=== PATIENT | female | born 1995 | race Caucasian/White ===

== ENCOUNTER 2016-12-05 07:56 | Emergency (ER) | payer OTHER ==
[~2016-12-05] VITALS: Ht 157.5 cm; Wt 46.9 kg
[~2016-12-05 07:56] MED LIST: AMOXICILLIN875 MG PO; FIORICET 50-301 EACH PO; FLEXERIL10 MG PO; GUMMI BEAR MUL1 EACH PO; MACROBID100 MG PO; MOTRIN600 MG PO; MOTRIN800 MG PO; NORCO 5/3251 TABLET PO; PERCOCET 5/31 TABLET PO
[2016-12-05 08:25] LABS: ADD MIUA? YES; BILIRUBIN NEGATIVE; BLOOD NEGATIVE; COLOR YELLOW ((YELLOW)); GLUCOSE (STRIP) NEGATIVE; KETONES NEGATIVE; LEUKOCYTES TRACE; NITRITE NEGATIVE; PROTEIN (STRIP) NEGATIVE; SPECIFIC GRAVITY 1.012 (1.000-1.030); UROBILINOGEN 0.2 MG/DL (0.2-1.0)
[2016-12-05 08:29] LABS: BACTERIA RARE /HPF; EPITHELIAL CELLS 1+ /HPF; MUCUS TRACE /LPF; RED BLOOD CELLS 0-5 /HPF (0-5); UCUL ADDED? NO; WHITE BLOOD CELLS 0-5 /HPF (0-5)
[2016-12-05 08:33] LABS: HEMATOCRIT 41.9 % (36.0-46.0); MCH 27.9 PG (29.0-34.0); MCHC 32.7 G/DL (30.0-36.0); MCV 85.3 FL (83-99); RBC DIS.WIDTH-CV 13.9 % (11.8-14.6); RBC DIS.WIDTH-SD 43.5 % (39-53); RED BLOOD COUNT 4.91 M/uL (3.80-5.20); WHITE BLOOD COUNT 9.6 K/uL (4.1-10.2)
[2016-12-05 08:42] LABS: CHLORIDE 107 mEq/L (99-109); POTASSIUM 4.1 mEq/L (3.7-5.4); SODIUM 138 mEq/L (136-147)
[2016-12-05 08:45] LABS: GLUCOSE 85 mg/dL (70-99)
[2016-12-05 08:46] LABS: ANION GAP 11 MEQ/L (2-14); TOTAL BILIRUBIN 0.7 mg/dL (0.0-1.0)
[2016-12-05 08:48] LABS: ALKALINE PHOSPHATASE 42 IU/L (3-129); GFR ESTIMATE (CALCULATED) > 59 mL/min/
[2016-12-05 08:49] LABS: UREA NITROGEN (BUN) 14 mg/dL (9-23)
[2016-12-05 08:58] LABS: QUANTITATIVE HCG < 4.0 MIU/ML
[2016-12-05] MEDS ORDERED: ZOFRAN ODT4 MG PO (10:20)
[2016-12-05] MEDS ORDERED: BENTYL20 MG PO (10:20)
[2016-12-05 10:37] VITALS: BP 148/80
[2016-12-05 13:27] LABS: HEMATOLOGY COMMENT 1 SMEAR COMPATIBLE; MEAN PLAT.VOLUME 11.7 uM^3 (9.5-12.4); PLATELET COUNT 254 K/uL (156-360)
== END 2016-12-05 10:44 | disposition home or self-care (01) ==
LOC: EME 07:56
DX: K52.9 Noninfective gastroenteritis and colitis, unspecified (principal)
CPT/HCPCS: 80053; 81003; 84702; 85027; 99281; 99285; J1885; J2405; J2765; J7030

== ENCOUNTER 2016-12-16 12:28 | Emergency (ER) | payer OTHER ==
[~2016-12-16] VITALS: Ht 157.5 cm; Wt 46.9 kg
[~2016-12-16 12:28] MED LIST changes: +BENTYL20 MG PO; +ZOFRAN ODT4 MG PO
[2016-12-16 13:50] LABS: HEMATOCRIT 44.7 % (36.0-46.0); MCHC 33.1 G/DL (30.0-36.0); MCV 84.7 FL (83-99); MEAN PLAT.VOLUME 11.7 uM^3 (9.5-12.4); RBC DIS.WIDTH-CV 13.4 % (11.8-14.6); RBC DIS.WIDTH-SD 41.6 % (39-53); RED BLOOD COUNT 5.28 M/uL (3.80-5.20)
[2016-12-16 13:56] LABS: CHLORIDE 107 mEq/L (99-109); POTASSIUM 4.2 mEq/L (3.7-5.4)
[2016-12-16 13:57] LABS: SODIUM 139 mEq/L (136-147)
[2016-12-16 13:58] LABS: PLATELET COUNT 342 K/uL (156-360); WHITE BLOOD COUNT 22.2 K/uL (4.1-10.2)
[2016-12-16 13:59] LABS: GLUCOSE 110 mg/dL (70-99)
[2016-12-16 14:00] LABS: ANION GAP 10 MEQ/L (2-14)
[2016-12-16 14:01] LABS: TOTAL BILIRUBIN 0.6 mg/dL (0.0-1.0)
[2016-12-16 14:02] LABS: ALKALINE PHOSPHATASE 44 IU/L (3-129); GFR ESTIMATE (CALCULATED) > 59 mL/min/
[2016-12-16 14:03] LABS: UREA NITROGEN (BUN) 12 mg/dL (9-23)
[2016-12-16 14:06] LABS: LIPASE 22 U/L (1.0-51.0)
[2016-12-16 14:10] LABS: ADD MIUA? YES; BILIRUBIN NEGATIVE; BLOOD NEGATIVE; COLOR YELLOW ((YELLOW)); GLUCOSE (STRIP) NEGATIVE; KETONES 20; LEUKOCYTES SMALL; NITRITE NEGATIVE; PROTEIN (STRIP) NEGATIVE; SPECIFIC GRAVITY 1.017 (1.000-1.030); UROBILINOGEN 0.2 MG/DL (0.2-1.0)
[2016-12-16 14:12] LABS: QUANTITATIVE HCG < 4.0 MIU/ML
[2016-12-16 14:17] LABS: BACTERIA RARE /HPF; EPITHELIAL CELLS 2+ /HPF; MUCUS TRACE /LPF; RED BLOOD CELLS 0-5 /HPF (0-5); UCUL ADDED? NO
[2016-12-16] MEDS ORDERED: NEXIUM40 MG PO (15:52)
[2016-12-16] MEDS ORDERED: REGLAN5 MG PO (15:52)
[2016-12-16] MEDS ORDERED: CIPRO500 MG PO (15:55)
[2016-12-16 16:36] VITALS: BP 100/60
[2016-12-16 17:28] LABS: C DIFF TOXIN NEGATIVE (NEGATIVE)
[2016-12-16 17:48] LABS: PROBE CHECK PASS; SPECIMEN PROCESSING CONTROL PASS
== END 2016-12-16 16:36 | disposition home or self-care (01) ==
LOC: EME 12:28
PROVIDERS: Nurse Practitioner Family
DX: N39.0 Urinary tract infection, site not specified (principal); R11.2 Nausea with vomiting, unspecified; R19.7 Diarrhea, unspecified; D72.829 Elevated white blood cell count, unspecified
CPT/HCPCS: 74177; 80053; 81003; 83690; 84702; 85027; 87493; 87506; 99281; 99285; J1885; J2765; J7040

== ENCOUNTER 2018-01-25 00:36 | Emergency (ER) | payer SELFPAY ==
[~2018-01-25] VITALS: Ht 157.5 cm; Wt 48.5 kg
[~2018-01-25 00:36] MED LIST changes: +CIPRO500 MG PO; +NEXIUM40 MG PO; +REGLAN5 MG PO
[2018-01-25 01:15] LABS: BASOPHIL (%) 0.7 % (0-1); BASOPHIL COUNT 0.1 K/uL (0-0.1); EOSINOPHIL COUNT 0.1 K/uL (0-0.3); HEMATOCRIT 42.2 % (36.0-46.0); HEMOGLOBIN 13.9 G/DL (11.9-15.5); IMMATURE GRANULOCYTE (%) 0.3 % (0.0-0.7); LYMPHOCYTE (%) 24.3 % (15-42); LYMPHOCYTE COUNT 2.6 K/uL (1.0-2.8); MCH 28.8 PG (29.0-34.0); MCHC 32.9 G/DL (30.0-36.0); MCV 87.6 FL (83-99); MONOCYTE (%) 4.4 % (3-12); MONOCYTE COUNT 0.5 K/uL (0-0.8); NEUTROPHIL (%) 69.3 % (45-76); NEUTROPHIL COUNT 7.4 K/uL (1.8-6.4); PLATELET COUNT 286 K/uL (156-360); RBC DIS.WIDTH-CV 13.2 % (11.8-14.6); RBC DIS.WIDTH-SD 42.3 % (39-53); RED BLOOD COUNT 4.82 M/uL (3.80-5.20); WHITE BLOOD COUNT 10.7 K/uL (4.1-10.2)
[2018-01-25 01:29] LABS: AMYLASE 41 IU/L (1-118); CHLORIDE 107 mEq/L (99-109); POTASSIUM 3.7 mEq/L (3.7-5.4); SODIUM 139 mEq/L (136-147)
[2018-01-25 01:29] LABS: PTT 28.9 SEC (25-37)
[2018-01-25 01:31] LABS: GLUCOSE 107 mg/dL (70-99)
[2018-01-25 01:34] LABS: SERUM ETHYL ALCOHOL < 10 mg/dL
[2018-01-25 01:35] LABS: CREATININE 0.8 mg/dL (0.6-1.3); GFR ESTIMATE (CALCULATED) > 59 mL/min/
[2018-01-25 01:36] LABS: UREA NITROGEN (BUN) 7 mg/dL (9-23)
[2018-01-25 01:38] LABS: LIPASE 32 U/L (1.0-51.0)
[2018-01-25 01:39] LABS: TROP-I INTERPRETATION NEGATIVE; TROPONIN-I < 0.01 ng/mL (0.0-0.30)
[2018-01-25 01:44] LABS: QUANTITATIVE HCG < 4.0 MIU/ML
[2018-01-25 02:02] LABS: APPEARANCE SL.HAZY ((CLEAR)); BILIRUBIN NEGATIVE; BLOOD SMALL; COLOR YELLOW ((YELLOW)); GLUCOSE (STRIP) NEGATIVE; KETONES NEGATIVE; LEUKOCYTES LARGE; NITRITE NEGATIVE; PROTEIN (STRIP) NEGATIVE; SPECIFIC GRAVITY 1.008 (1.000-1.030); UROBILINOGEN 0.2 MG/DL (0.2-1.0)
[2018-01-25 02:05] LABS: BACTERIA RARE /HPF; EPITHELIAL CELLS 2+ /HPF; MUCUS TRACE /LPF; UCUL ADDED? YES; WHITE BLOOD CELLS 20-30 /HPF (0-5)
[2018-01-25 02:09] LABS: MAGNESIUM 2.9 mg/dL (1.3-2.7)
[2018-01-25 02:12] LABS: AMPHETAMINE NEGATIVE (500 ng/mL); BARBITURATES NEGATIVE (200 ng/mL); BENZODIAZEPINES NEGATIVE (150 ng/mL); BUPRENORPHINE NEGATIVE (10 ng/mL); COCAINE NEGATIVE (150 ng/mL); METHADONE NEGATIVE (200 ng/mL); METHAMPHETAMINE NEGATIVE (500 ng/mL); OPIATES (MORPHINE) NEGATIVE (100 ng/mL); OXYCODONE NEGATIVE (100 ng/mL); PHENCYCLIDINE NEGATIVE (25 ng/mL); PROPOXYPHENE NEGATIVE (300 ng/mL); THC CANNABINOIDS NEGATIVE (50 ng/mL); TRICYCLIC ANTIDEPRESSANTS NEGATIVE (300 ng/mL)
[2018-01-25] MEDS ORDERED: AUGMENTIN875 MG PO (03:27)
[2018-01-25 03:47] VITALS: BP 132/88
== END 2018-01-25 03:48 | disposition home or self-care (01) ==
LOC: EME 00:36
PROVIDERS: Emergency Medicine
DX: N30.01 Acute cystitis with hematuria (principal); J01.90 Acute sinusitis, unspecified; R55 Syncope and collapse; E86.0 Dehydration
CPT/HCPCS: 70450; 71045; 80048; 81003; 82150; 83690; 83735; 84484; 84702; 85025; 85027; 85610; 85730; 86850; 86900; 86901; 87086; 93005; 99281; 99285; G0480; J7030

== ENCOUNTER 2018-02-23 07:14 | Emergency (ER) | payer BC ==
[~2018-02-23] VITALS: Ht 157.5 cm; Wt 47.4 kg
[~2018-02-23 07:14] MED LIST changes: +AUGMENTIN875 MG PO
[2018-02-23 08:19] LABS: HEMATOCRIT 36.3 % (36.0-46.0); HEMOGLOBIN 12.1 G/DL (11.9-15.5); MCH 28.2 PG (29.0-34.0); MCHC 33.3 G/DL (30.0-36.0); MCV 84.6 FL (83-99); RBC DIS.WIDTH-CV 13.3 % (11.8-14.6); RBC DIS.WIDTH-SD 41.1 % (39-53); RED BLOOD COUNT 4.29 M/uL (3.80-5.20); WHITE BLOOD COUNT 8.1 K/uL (4.1-10.2)
[2018-02-23 08:23] LABS: ALBUMIN 4.4 g/dL (3.2-4.8); CHLORIDE 106 mEq/L (99-109); POTASSIUM 3.8 mEq/L (3.7-5.4); SODIUM 139 mEq/L (136-147)
[2018-02-23 08:25] LABS: GLUCOSE 101 mg/dL (70-99)
[2018-02-23 08:26] LABS: TOTAL PROTEIN 7.3 g/dL (6.4-8.3)
[2018-02-23 08:27] LABS: TOTAL BILIRUBIN 0.5 mg/dL (0.0-1.0)
[2018-02-23 08:29] LABS: ALKALINE PHOSPHATASE 52 IU/L (3-129); CREATININE 0.8 mg/dL (0.6-1.3); GFR ESTIMATE (CALCULATED) > 59 mL/min/
[2018-02-23 08:30] LABS: UREA NITROGEN (BUN) 8 mg/dL (9-23)
[2018-02-23 08:31] LABS: AST (GOT) 21 IU/L (2-34)
[2018-02-23 08:32] LABS: ALT (GPT) 15 IU/L (3-49)
[2018-02-23 08:38] LABS: QUANTITATIVE HCG < 4.0 MIU/ML
[2018-02-23 09:31] LABS: PLAT.SUFFICIENCY ADEQUATE; PLATELET COUNT 260 K/uL (156-360)
[2018-02-23 09:49] LABS: APPEARANCE CLEAR ((CLEAR)); BILIRUBIN NEGATIVE; BLOOD MODERATE; COLOR STRAW ((YELLOW)); GLUCOSE (STRIP) NEGATIVE; KETONES NEGATIVE; LEUKOCYTES TRACE; NITRITE NEGATIVE; PROTEIN (STRIP) NEGATIVE; SPECIFIC GRAVITY 1.008 (1.000-1.030); UROBILINOGEN 0.2 MG/DL (0.2-1.0)
[2018-02-23 09:54] LABS: BACTERIA RARE /HPF; EPITHELIAL CELLS 1+ /HPF; MUCUS TRACE /LPF; RED BLOOD CELLS 0-5 /HPF (0-5); UCUL ADDED? NO; WHITE BLOOD CELLS 0-5 /HPF (0-5)
[2018-02-23 11:12] VITALS: BP 132/87
== END 2018-02-23 11:15 | disposition home or self-care (01) ==
LOC: EME 07:14
PROVIDERS: Nurse Practitioner Family
DX: G43.509 Persistent migraine aura without cerebral infarction, not intractable, without status migrainosus (principal); R31.9 Hematuria, unspecified; R04.2 Hemoptysis; R00.0 Tachycardia, unspecified; R29.700 NIHSS score 0
CPT/HCPCS: 70450; 80053; 81003; 82948; 84702; 85027; 99281; 99285; J1885; J2765; J7030